=== PATIENT | female | born 1980 | race Caucasian/White ===

== ENCOUNTER → 2020-10-25 | Outpatient (CLI) | payer OTHER ==
--- NOTE | 2020-10-25 15:41 | KCIC ---
EXAMINATION: MRI RIGHT KNEE WITHOUT IV CONTRAST CLINICAL HISTORY: RIGHT KNEE SWELLING AND HISTORY OF ACL REPAIR 1995. History of right knee swelling about 6 months ago. New lateral pain. TECHNIQUE: Multiplanar multisequential images obtained through the knee without intravenous contrast. COMPARISON: Right knee radiographs 10/14/2020 FINDINGS: MENISCI: Medial Meniscus: Intact. Lateral Meniscus: Complex tear in the anterior horn with multilocular fluid collection that appears t o extend through the tear and into the proximal tibial tunnel LIGAMENTS: ACL: Intact ACL graft with fixation screws in the posterior superior intercondylar notch/supracondyla r femur and medial proximal tibial metaphysis with associated susceptibility artifact PCL: Intact MCL: Intact LCL Complex: Intact CARTILAGE: Medial Femoral Condyle: Normal Medial Tibial Plateau: Normal Lateral Femoral Condyle: Small areas(s) of predominantly low grade (less than 50% thickness) cartilag e loss and or fissuring with smaller area(s) of high grade (greater than 50% thickness) cartilage los s and or fissuring in the posterior weightbearing portion of the condyle Lateral Tibial Plateau: Small area(s) of full thickness cartilage loss and or fissuring posteriorly Patella: Normal Trochlea: Normal TENDONS: Postoperative changes in the central patellar tendon and patellar and tibial attachments rel ated to bone-patellar tendon-bone graft harvesting with associated multifocal susceptibility artifact . Distal quadriceps and patellar tendons otherwise intact. Popliteus tendon intact. BONES AND MARROW: No evidence of acute fracture or suspicious marrow replacing process. MUSCLES: Muscle bulk and signal intensity within normal limits. JOINT FLUID AND SYNOVIUM: Small joint effusion. No synovitis. No Mulligan's cyst. OTHER: Subcutaneous edema along the anterolateral aspect of the infrapatellar knee. IMPRESSION: Lateral meniscus tear with multilocular parameniscal/tibial tunnel cyst as described. Intact ACL graft. Mild full-thickness chondral wear in the posterior lateral tibial plateau. Electronically signed by: Twin Murphy DO (10/25/2020 3:38 PM) [id number]
== END ==
LOC: KCIC MRI 07:50
PROVIDERS: ATTEND Physician Assistant Medical
DX: M25.461 Effusion, right knee (principal)
CPT/HCPCS: 73721